=== PATIENT | male | born 1940 | race Caucasian/White ===

== ENCOUNTER 2019-08-20 08:54 | Observation (INO) | payer OTHER ==
--- NOTE | 2019-08-20 09:56 | RAD REPORT ---
EXAM DESCRIPTION: RAD - Chest Single View - 08/20/2019 9:34 am CLINICAL HISTORY: Shortness of breath COMPARISON: None. TECHNIQUE: AP portable chest image was obtained 0932 hours . FINDINGS: Lung volumes are low. Exam is further limited by portable technique and large body habitus . No focal lung parenchymal process suspected. Sternotomy wires are in place. Heart and vasculature are normal. No measurable pleural effusion and no pneumothorax. No acute bony abnormality seen. No acute aortic findings suspected. IMPRESSION: No acute cardiopulmonary process.
--- NOTE | 2019-08-20 10:01 | RAD REPORT ---
EXAM DESCRIPTION: CT - CTHCSPWOC - 08/20/2019 9:39 am CLINICAL HISTORY: Weakness, dizziness, shortness of breath, syncope COMPARISON: None. TECHNIQUE: Axial 5 mm thick images of the head were obtained. Axial 2 mm thick images of the cervic al spine were obtained with sagittal and coronal reconstruction images generated and reviewed. All CT scans are performed using dose optimization technique as appropriate and may include automated exposure control or mA/KV adjustment according to patient size. FINDINGS: No intracranial hemorrhage, mass, edema or acute intracranial finding. No suspicion for ac akua infarction. Atrophy and chronic ischemic changes are present mild to moderate in degree. Ventricl es are in proportion to volume loss. Mastoid air cells and paranasal sinuses are clear. No globe or o rbit abnormality seen. Asymmetry is created noted to. Cervical body height and alignment are normal. C5-6, C6-7 C7-T1 disc space narrowing present. Mild jaime ny foraminal encroachment at C5-6 with more advanced C6-7 bony foraminal encroachment. No fracture or acute bony abnormality. Central canal detail is inherently limited. No paraspinal mass or hematoma. IMPRESSION: Mild to moderate severity atrophy and chronic ischemic changes are present. No acute int racranial finding. Cervical spine degenerative changes are present including prominent C6-7 bilateral bony foraminal merlyn nosis. No acute finding.
[2019-08-20 10:56] LABS: Absolute Lymphocytes (CBC) 0.8 K/uL (0.7-4.9); Basophils % 0.4 % (0-1.3); Lymphocytes % 6.6 % (15.3-44.8); MPV 10.2 fL (7.6-11.3); Protime INR 1.04
[2019-08-20 11:07] LABS: BUN Blood Urea Nitrogen 13 mg/dL (7-18); Bicarbonate 28 mmol/L (21-32); Glucose Level 114 mg/dL (74-106); NT PRO-BNP 806 pg/mL (<450); Potassium 3.8 mmol/L (3.5-5.1); Sodium Level 132 mmol/L (136-145); Troponin (Emerg Dept Use Only) < 0.02 ng/mL (0.0-0.045)
--- NOTE | 2019-08-20 11:52 | EDPHYS ---
Physician Documentation [facility] Name: Robert De La Paz Age: 79 yrs Sex: Male : 1940 Arrival Date: 08/20/2019 Time: 08:56 Bed 6 Private MD: ED Physician Rick Casas HPI: 08/20 09:19 This 79 yrs old Male presents to ER via Ambulatory with complaints of rn Shortness Of Breath, Arm Pain, Numbness Of Arm. 09:19 The patient has shortness of breath at rest, with light activity. Onset: The rn symptoms/episode began/occurred 3 day(s) ago. Duration: The symptoms are intermittent. The patient's shortness of breath is aggravated by exertion, light activity. Severity of symptoms: At their worst the symptoms were mild in the emergency department the symptoms are unchanged. The patient has not experienced similar symptoms in the past. The patient has not recently seen a physician. Reports 3 days or so of sob, worse with exertion, + productive cough, no chest pain. Reports last night noticed left shoulder pain with movement and numbness of left arm. No trauma. No fever. NO abd pain. + diarrhea. . Historical: - Allergies: 09:20 No Known Allergies; aa5 - Home Meds: 09:20 Toprol XL Oral [Active]; Unknown diuretic [Active]; Simvastatin Oral [Active]; aa5 - PMHx: 09:20 Hypertension; "Heart problems"; aa5 09:20 Myocardial infarction; aa5 - PSHx: 09:20 Heart Surgery; aa5 - Immunization history:: Flu vaccine is not up to date. - Family history:: not pertinent. - Ebola Screening: : No symptoms or risks identified at this time. - Social history:: Smoking status: Patient/guardian denies using tobacco. - Hospitalizations: : No recent hospitalization is reported. ROS: 09:19 Constitutional: Negative for fever, chills, and weight loss, Eyes: Negative for injury, rn pain, redness, and discharge, Neck: Negative for injury, pain, and swelling, Cardiovascular: Negative for chest pain, palpitations, and edema, Respiratory: Negative for wheezing, and pleuritic chest pain, Abdomen/GI: Negative for abdominal pain, nausea, vomiting, and constipation, MS/Extremity: Negative for injury and deformity, Skin: Negative for injury, rash, and discoloration, Neuro: Negative for headache, weakness, numbness, tingling, and seizure. Exam: 09:19 Constitutional: This is a well developed, well nourished patient who is awake, alert, rn and in no acute distress. Ambulatory to room without difficulty or distress Head/Face: Normocephalic, atraumatic. Eyes: Pupils equal round and reactive to light, extra-ocular motions intact. Lids and lashes normal. Conjunctiva and sclera are non-icteric and not injected. Cornea within normal limits. Periorbital areas with no swelling, redness, or edema. Cardiovascular: Regular rate and rhythm. No pulse deficits. Respiratory: Lungs have equal breath sounds bilaterally, clear to auscultation. No increased work of breathing, no retractions or nasal flaring. Abdomen/GI: soft, non-tender MS/ Extremity: Pulses equal, no cyanosis. Neurovascular intact. Painful ROM left shoulder. Equal circumference. Neuro: Awake and alert, GCS 15, oriented to person, place, time, and situation. Cranial nerves II-XII grossly intact. Motor strength 5/5 in all extremities. Sensory grossly intact. Cerebellar exam normal. Normal gait. 09:47 ECG was reviewed by the Attending Physician. rn Vital Signs: 09:15 BP 148 / 87; Pulse 85; Resp 16; Temp 97.8; Pulse Ox 99% on R/A; Pain 4/10; hb 10:00 BP 136 / 86; Pulse 74; Resp 22 S; Temp 99.4(O); Pulse Ox 97% on R/A; aa5 11:00 BP 140 / 74; Pulse 76; Resp 16 S; Pulse Ox 97% on R/A; aa5 12:00 BP 127 / 91; Pulse 75; Resp 18 S; Pulse Ox 97% on R/A; aa5 13:00 BP 126 / 74; Pulse 73; Resp 18 S; Pulse Ox 97% on R/A; aa5 14:30 BP 128 / 74; Pulse 84; Resp 18 S; Pulse Ox 97% on R/A; aa5 MDM: 09:08 Patient medically screened. rn 11:50 Differential diagnosis: CHF exacerbation, Myocardial Infarction Pneumothorax. Data rn reviewed: vital signs, nurses notes, lab test result(s), EKG, radiologic studies, plain films, and as a result, I will admit patient. Counseling: I had a detailed discussion with the patient and/or guardian regarding: the historical points, exam findings, and any diagnostic results supporting the discharge/admit diagnosis, lab results, radiology results, the need for further work-up and treatment in the hospital. Admission orders: after a detailed discussion of the patient's condition and case, the admit orders are written by me. ED course: Will admit patient given worsening chest pain and dyspnea on exertion, with diaphoresis last night. Elevated BNP, normal trop, frequent PVcs, has not seen cardiology since bypass 21 years ago. Could be CHF vs disease of bypass vessels. . 08/20 09:19 Order name: Blood Culture Adult (2) rn 08/20 09:19 Order name: BMP; Complete Time: 11:33 rn 08/20 09:19 Order name: CBC with Diff; Complete Time: 11:33 rn 08/20 09:19 Order name: NT PRO-BNP; Complete Time: 11:33 rn 08/20 09:19 Order name: PT-INR; Complete Time: 11:33 rn 08/20 09:19 Order name: Ptt, Activated; Complete Time: 11:33 rn 08/20 09:19 Order name: XRAY CXR (1 view); Complete Time: 10:10 rn 08/20 09:19 Order name: Troponin (emerg Dept Use Only); Complete Time: 11:33 rn 08/20 09:19 Order name: EKG; Complete Time: 09:20 rn 08/20 09:19 Order name: Procalcitonin; Complete Time: 11:33 rn 08/20 09:19 Order name: Flu; Complete Time: 10:55 rn 08/20 09:19 Order name: CT Head C Spine; Complete Time: 10:10 rn 08/20 12:34 Order name: Diet Heart Healthy; Complete Time: 12:35 aa5 08/20 09:19 Order name: Cardiac monitoring; Complete Time: 09:26 rn 08/20 09:19 Order name: EKG - Nurse/Tech; Complete Time: 09:26 rn 08/20 09:19 Order name: IV Saline Lock; Complete Time: 10:24 rn 08/20 09:19 Order name: Labs collected and sent; Complete Time: 10:24 rn 08/20 09:19 Order name: O2 Per Protocol; Complete Time: rn 08/20 09:19 Order name: O2 Sat Monitoring; Complete Time: rn EC:47 Rate is 83 beats/min. Rhythm is regular. QRS [place] is Normal. IL interval is normal. QRS rn interval is normal. QT interval is normal. No Q waves. T waves are Normal. No ST changes noted. Clinical impression: NSR w/ Non-specific ST/T Changes and PVCs. Interpreted by me. Reviewed by me. Administered Medications: 12:08 Drug: Aspirin Chewable Tablet 324 mg Route: PO; aa5 13:00 Follow up: Response: No adverse reaction aa5 Disposition: 08/20/19 11:51 Hospitalization ordered by Stephanie Blake for Observation. Preliminary diagnosis are Chest pain, unspecified, Dyspnea, unspecified. - Bed requested for Telemetry/MedSurg (observation). - Status is Observation. ae4 - Condition is Stable. - Problem is an ongoing problem. - Symptoms have improved. UTI on Admission? No Signatures: Dispatcher [employer] EDMS Rick Casas MD MD rn Calderon, Audri RN RN aa5 Aye Rob Carlos Mandel RN RN ae4 Corrections: (The following items were deleted from the chart) 14:12 11:51 Hospitalization Ordered by Stephanie Blake MD for Observation. Preliminary diagnosis gm is Chest pain, unspecified; Dyspnea, unspecified. Bed requested for Telemetry/MedSurg (observation). Status is Observation. Condition is Stable. Problem is an ongoing problem. Symptoms have improved. UTI on Admission? No. rn 16:02 14:12 08/20/2019 11:51 Hospitalization Ordered by Stephanie Blake MD for Observation. ae4 Preliminary diagnosis is Chest pain, unspecified; Dyspnea, unspecified. Bed requested for Telemetry/MedSurg (observation). Status is Observation. Condition is Stable. Problem is an ongoing problem. Symptoms have improved. UTI on Admission? No. gm
--- NOTE | 2019-08-20 11:52 | ER ---
[facility] Name: Robert De La Paz Age: 79 yrs Sex: Male : 1940 Arrival Date: 08/20/2019 Time: 08:56 Bed 6 Private MD: Diagnosis: Chest pain, unspecified;Dyspnea, unspecified Presentation: 08/20 09:13 Presenting complaint: SOB, dizziness and malaise x 1 week, left arm numbness and hb tingling yesterday, left arm numbness and left shoulder pain upon waking today. VAN NEGATIVE. Transition of care: patient was not received from another setting of care. Onset of symptoms is unknown. Risk Assessment: Do you want to hurt yourself or someone else? Patient reports no desire to harm self or others. Care prior to arrival: None. 09:13 Method Of Arrival: Ambulatory hb 09:13 Acuity: DANIELLA 3 hb 09:20 Initial Sepsis Screen: Does the patient meet any 2 criteria? No. Patient's initial aa5 sepsis screen is negative. Does the patient have a suspected source of infection? No. Patient's initial sepsis screen is negative. Historical: - Allergies: 09:20 No Known Allergies; aa5 - Home Meds: 09:20 Toprol XL Oral [Active]; Unknown diuretic [Active]; Simvastatin Oral [Active]; aa5 - PMHx: 09:20 Hypertension; "Heart problems"; aa5 09:20 Myocardial infarction; aa5 - PSHx: 09:20 Heart Surgery; aa5 - Immunization history:: Flu vaccine is not up to date. - Family history:: not pertinent. - Ebola Screening: : No symptoms or risks identified at this time. - Social history:: Smoking status: Patient/guardian denies using tobacco. - Hospitalizations: : No recent hospitalization is reported. Screenin:20 Abuse screen: Denies threats or abuse. Nutritional screening: No deficits noted. aa5 Tuberculosis screening: No symptoms or risk factors identified. Fall Risk None identified. Assessment: 09:20 General: Appears comfortable, Behavior is calm, cooperative. Pain: Complains of pain in aa5 left shoulder and left arm Pain does not radiate. Pain currently is 4 out of 10 on a pain scale. Quality of pain is described as sharp, Is intermittent, Aggravated by any movement to left arm. Neuro: Level of Consciousness is awake, alert, obeys commands, Oriented to person, place, time, situation, Motel Operator are equal bilaterally Moves all extremities. Speech is normal, Facial symmetry appears normal, Pupils are PERRLA, Tingling in left arm. Cardiovascular: Heart tones S1 S2 present Rhythm is sinus rhythm with unifocal PVCs. Respiratory: Reports shortness of breath cough that is productive, Airway is patent Respiratory effort is even, unlabored, Respiratory pattern is regular, symmetrical, Breath sounds are clear bilaterally. GI: Abdomen is obese, Bowel sounds present X 4 quads. Abd is non tender X 4 quads. : No signs and/or symptoms were reported regarding the genitourinary system. EENT: No signs and/or symptoms were reported regarding the EENT system. Derm: Skin is pink, warm \\T\\ dry. Musculoskeletal: Range of motion: intact in all extremities. 09:26 Reassessment: X-ray at bedside . aa5 09:50 Reassessment: Patient is alert, oriented x 3, equal unlabored respirations, skin aa5 warm/dry/pink. Pt back from CT. . 09:50 Reassessment: Pt reports he has not seen a doctor since myocardial infarction aa5 approximately 21 years ago. . 10:00 Reassessment: Pt notified of wait time for lab results. . aa5 11:00 Reassessment: Patient is alert, oriented x 3, equal unlabored respirations, skin aa5 warm/dry/pink. 12:08 Reassessment: Patient is alert, oriented x 3, equal unlabored respirations, skin aa5 warm/dry/pink. Pt's family at bedside. . 13:30 Reassessment: Patient is alert, oriented x 3, equal unlabored respirations, skin aa5 warm/dry/pink. Pt sitting up in bed eating lunch, pt tolerating well. . 13:30 Reassessment: Patient denies pain at this time. aa5 14:30 Reassessment: Patient is alert, oriented x 3, equal unlabored respirations, skin aa5 warm/dry/pink. Pt sitting up in bed watching TV. Pt notified of wait time for transfer to admitting floor. . 14:30 Reassessment: Patient denies pain at this time. aa5 15:48 Reassessment: Report given to ELENI Savage. ae4 Vital Signs: 09:15 BP 148 / 87; Pulse 85; Resp 16; Temp 97.8; Pulse Ox 99% on R/A; Pain 4/10; hb 10:00 BP 136 / 86; Pulse 74; Resp 22 S; Temp 99.4(O); Pulse Ox 97% on R/A; aa5 11:00 BP 140 / 74; Pulse 76; Resp 16 S; Pulse Ox 97% on R/A; aa5 12:00 BP 127 / 91; Pulse 75; Resp 18 S; Pulse Ox 97% on R/A; aa5 13:00 BP 126 / 74; Pulse 73; Resp 18 S; Pulse Ox 97% on R/A; aa5 14:30 BP 128 / 74; Pulse 84; Resp 18 S; Pulse Ox 97% on R/A; aa5 ED Course: 08:56 Patient arrived in ED. as 09:08 Rick Casas MD is Attending Physician. rn 09:10 Aliya Dash RN is Primary Nurse. aa5 09:15 Triage completed. hb 09:15 Arm band placed on. hb 09:20 Patient has correct armband on for positive identification. Placed in gown. Bed in low aa5 position. Call light in reach. Side rails up X2. radiation monitor on. Pulse ox on. NIBP on. 09:32 XRAY CXR (1 view) In Process Unspecified. EDMS 09:39 CT Head C Spine In Process Unspecified. EDMS 09:39 CT completed. Patient tolerated procedure well. Patient moved back from CT. mw3 10:00 Initial lab(s) drawn, by me, sent to lab. Inserted saline lock: 20 gauge in right aa5 wrist, using aseptic technique. Blood collected. 10:00 First set of blood cultures drawn by me. aa5 10:00 No provider procedures requiring assistance completed. aa5 10:16 Second set of blood cultures drawn by me. aa5 11:51 Stephanie Blake MD is Hospitalizing Provider. rn 16:02 Patient admitted, IV remains in place. ae4 Administered Medications: 12:08 Drug: Aspirin Chewable Tablet 324 mg Route: PO; aa5 13:00 Follow up: Response: No adverse reaction aa5 Outcome: 11:51 Decision to Hospitalize by Provider. rn 16:01 Admitted to Med/surg accompanied by tech, family with patient, via wheelchair, room ae4 428, with oxygen, with chart, Report called to ELENI Savage 16:01 Condition: stable 16:01 Instructed on the need for admit. 16:02 Patient left the ED. ae4 Signatures: Dispatcher [employer] Lita Guajardo Roman, MD MD rn Calderon, Audri, RN RN aa5 Oksana Greco RN RN hb Willis, Michelle mw3 Carlos Mandel RN RN ae4 Corrections: (The following items were deleted from the chart) : General: Appears comfortable, Behavior is calm, cooperative, aa5 aa5 :10 Pain: Complains of pain in left shoulder and left arm Pain does not radiate. Pain aa5 currently is 4 out of 10 on a pain scale. Quality of pain is described as sharp, Is intermittent, Aggravated by any movement to left arm aa5 :10 Neuro: Level of Consciousness is awake, alert, obeys commands, Oriented to aa5 person, place, time, situation, Motel Operator are equal bilaterally Moves all extremities. Speech is normal, Facial symmetry appears normal, Pupils are PERRLA, Tingling in left arm aa5 :10 Cardiovascular: Heart tones S1 S2 present Rhythm is sinus rhythm with unifocal aa5 PVCs aa5 :10 Respiratory: Reports shortness of breath cough that is productive, Airway is aa5 patent Respiratory effort is even, unlabored, Respiratory pattern is regular, symmetrical, Breath sounds are clear bilaterally. aa5 :10 GI: Abdomen is obese, Bowel sounds present X 4 quads. Abd is non tender X 4 quads aa5 aa5 :10 : No signs and/or symptoms were reported regarding the genitourinary system. aa5aa5 :10 EENT: No signs and/or symptoms were reported regarding the EENT system. aa5 aa5 :10 Derm: Skin is pink, warm \\T\\ dry. aa5 aa5 :10 Musculoskeletal: Range of motion: intact in all extremities, aa5 aa5
[2019-08-20] MEDS ORDERED: ASPIRIN 81 MG CHEWABLE TABLET ONE (12:04)
[2019-08-20 16:19] VITALS: BMI 38.1
[2019-08-20] MEDS ORDERED: NITROGLYCERIN 0.4 MG/TAB SL PRN (16:41)
[2019-08-20] MEDS ORDERED: MORPHINE 4 MG/ML SYR IV PRN (16:41)
[2019-08-20] MEDS ORDERED: INFLUENZA VACCINE (for 3y+) 0.5 ML DOSE IMVAC ONE (17:00)
--- NOTE | 2019-08-20 17:35 | P.HP ---
Certification for Inpatient Patient admitted to: Observation Practitioner: I am a practitioner with admitting privileges, knowledge of patient current condition, hospital course, and medical plan of care. Services: Services provided to patient in accordance with Admission requirements found in Title 42 Section 412.3 of the Code of Federal Regulations Patient History Date of Service: 08/20/19 History of Present Illness: This is a 79-year-old male with a past medical history of hypertension, myocardial infarction, triple bypass 20 years ago with no cardiac follow up since then who presents to the emergency room with complaints of chest pain and dyspnea. Per patient, he has been visiting his daughter from [place] and he started this morning, suddenly with left arm and shoulder pain along with numbness. Initially, left arm was completely known. He also endorsed chest pain along with shortness of breath, nausea and excessive sweating with the symptoms. He denied any dizziness, headache, vision changes, speech changes, lightheadedness, other GI or complaints. With his prior cardiac history, patient and daughter got scared and therefore came to the emergency room. In the ER, blood pressure was 148/87, heart rate of 85, afebrile at 97.8 and satting 99% on room air. Labs were unremarkable except for BNP which is elevated to 806. Troponin was negative x1. EKG was with frequent PVCs. Chest x-ray without any acute abnormalities. Head/C-spine CT without any acute abnormalities but noted chronic C6-7 bilateral foraminal stenosis. In the ER, he received aspirin. At the time of my exam, patient is alert oriented x3, in no acute distress and hemodynamically stable. He continued to endorse left hand numbness been much improved. He denied any chest pain at the time of my exam Allergies No Known Allergies Allergy (Unverified 08/20/19 16:18) Home medications list reviewed: Yes Home Medications: Lisinopril [Prinivil*] 20 mg PO BID 08/20/19 Meloxicam [Mobic] 15 mg PO DAILY 08/20/19 Metoprolol Succinate [Toprol Xl*] 50 mg PO BID 08/20/19 Simvastatin 20 mg PO BEDTIME 08/20/19 Tamsulosin [Flomax*] 0.4 mg PO DAILY 6PM 08/20/19 hydroCHLOROthiazide [Hydrochlorothiazide*] 25 mg PO DAILY 08/20/19 - Past Medical/Surgical History Has patient received pneumonia vaccine in the past: Yes Diabetic: No -: [place] -: HTN -: Triple Bypass - Social History Smoking Status: Never smoker Alcohol use: No CD- Drugs: No Caffeine use: Yes Place of Residence: Home Review of Systems 10-point ROS is otherwise unremarkable Physical Examination - Vital Signs Temperature: 99.4 F Blood Pressure: 136/86 Pulse: 74 Respirations: 22 - Physical Exam General: Alert, In no apparent distress, Oriented x3 HEENT: Atraumatic, PERRLA, Mucous membr. moist/pink, EOMI, Sclerae nonicteric Neck: Supple, 2+ carotid pulse no bruit, No LAD, Without JVD or thyroid abnormality Respiratory: Clear to auscultation bilaterally, Normal air movement Cardiovascular: Regular rate/rhythm, Normal S1 S2 Gastrointestinal: Normal bowel sounds, No tenderness Musculoskeletal: No tenderness Integumentary: No rashes Neurological: Normal speech, Normal strength at 5/5 x4 extr, Normal tone, Normal affect, Abnormal sensation Lymphatics: No axilla or inguinal lymphadenopathy - Studies Laboratory Data (last 24 hrs) 08/20/19 10:05: PT 12.3, INR 1.04, APTT 25.9 08/20/19 10:05: WBC 12.7 H, Hgb 14.1, Hct 42.0, Plt Count 196 08/20/19 10:05: Sodium 132 L, Potassium 3.8, BUN 13, Creatinine 1.10, Glucose 114 H Microbiology Data (last 24 hrs): 08/20/19 10:10 Nasopharnyx Influenza Type A Antigen Screen - Final 08/20/19 10:10 Nasopharnyx Influenza Type B Antigen Screen - Final Assessment and Plan - Problems (Diagnosis) (1) Chest pain Current Visit: Yes Status: Acute Qualifiers: Chest pain type: unspecified Qualified Code(s): R07.9 - Chest pain, unspecified (2) History of myocardial infarction Current Visit: Yes Status: Acute (3) History of heart bypass surgery Current Visit: Yes Status: Acute (4) Hypertension Current Visit: No Status: Chronic Qualifiers: Hypertension type: essential hypertension Qualified Code(s): I10 - Essential (primary) hypertension (5) Foraminal stenosis of cervical region Current Visit: Yes Status: Chronic (6) Morbid obesity Current Visit: Yes Status: Acute - Plan Differential diagnosis: ACS, symptoms could also be due to the bilateral foraminal stenosis in the cervical region -Due to patient's heart history, we will go ahead and admit patient for rule- out. -troponin negative x1, trend troponin -cardiology consult, awaiting recommendations -echo ordered, pending -Chest pain guidelines: Beta-giovanna, aspirin, Plavix, statin, COLE-inhibitor -he will likely need outpatient follow up for his chronic foraminal stenosis in the cervical region. He may benefit from following up with neuro surgery and maybe even some physical therapy -will restart home medications as tolerated DVT prophylaxis: Aspirin/Plavix GI prophylaxis: None Diet: Heart healthy Disposition: Admit to floor with tele. Pending symptomatic improvement. Pending cardiology recommendations. Discharge Plan: Home Plan to discharge in: 48 Hours - Advance Directives Does patient have a Living Will: No Does patient have a Durable POA for Healthcare: No Time Spent Managing Pts Care (In Minutes): 55
[2019-08-20] MEDS: TAMSULOSIN 0.4 MG SR CAP PO SCH (18:00)
[2019-08-20] MEDS ORDERED: METOPROLOL TAR 25 MG TAB PO SCH (21:00)
[2019-08-20] MEDS: METOPROLOL XL 50 MG TAB PO SCH (21:45)
[2019-08-20] MEDS: ATORVASTATIN 40 MG TAB PO SCH (21:46)
[2019-08-20] MEDS: LISINOPRIL 20 MG TAB PO SCH (21:46)
[2019-08-21 06:50] LABS: Potassium 4.1 mmol/L (3.5-5.1)
[2019-08-21 07:08] LABS: Absolute Lymphocytes (CBC) 1.6 K/uL (0.7-4.9); Basophils % 0.7 % (0-1.3); Hematocrit 38.9 % (39.6-49.0); Lymphocytes % 17.7 % (15.3-44.8)
[2019-08-21] MEDS ORDERED: REGADENOSON 0.4 MG/5 ML SYR IV ONE (08:00)
[2019-08-21] MEDS ORDERED: LISINOPRIL 10 MG TAB PO SCH (09:00)
--- NOTE | 2019-08-21 09:50 | EKG ---
Test Date: 2019-08-20 Test Time: 09:23:40 [employer] Tele[employer] Specialist: MEASUREMENT RESULTS: Intervals: Rate: 83 UT: 158 QRSD: 92 QT: 388 QTc: 455 Ophelia: P: 46 UT: 158 QRS: 48 T: 64 INTERPRETIVE STATEMENTS: Sinus rhythm with frequent premature ventricular complexes Septal infarct, age undetermined Abnormal ECG No previous ECG available for comparison Electronically Signed On 08-21-19 09:49:20 CDT by Ciro Andrea
--- NOTE | 2019-08-21 10:01 | CON ---
Identification: 79-year-old man. Chief Complaint: Chest pain and left arm pain. History Of Present Illness: Mr. De La Paz developed inability to move his arm, also stiffness and pain in the arm. It resolved after an hour or so. It was largely gone by the time he reached the emergen cy room. He has a history of bypass surgery 21 years ago. He does not see a electrophysiology nurse practitioner. He has n ever had stroke before his bypass. There was no IA. Medications: His outpatient medications have been simvastatin 20, hydrochlorothiazide, meloxicam, me toprolol, lisinopril, and tamsulosin. Allergies: HAS NO ALLERGIES. Social History: He does not use tobacco now. Physical Examination: Constitutional: 5 feet 10 inches, 266 pounds. General: Obese, alert, oriented, pleasant, not in distress. Neck: Carotids, no bruit. Lungs: Clear. Cardiac: S4 gallop, otherwise within normal limits. Abdomen: Soft. Extremities: Palpable but diminished pulses. Trace edema. Impression: The patient probably had a transient ischemic attack. He may also have angina. I would recommend we do a carotid Doppler, have a neuro consult, do an echo and a nuclear stress test and se e what kind of situation the patient is in. I suspect he had a transient ischemic attack and he also has an rodriguez. MADELAINE Voice ID: [id number] Report ID: [id number]
--- NOTE | 2019-08-21 10:17 | RAD REPORT ---
EXAM DESCRIPTION: - CP - 08/21/2019 9:09 am CLINICAL HISTORY: TIA, left arm weakness COMPARISON: None. TECHNIQUE: Real-time sonographic evaluation of both carotid systems was performed. Blackburn scale and Do ppler interrogation were performed with waveform tracing bilaterally. FINDINGS: Normal high resistance waveforms are noted in both external carotid arteries. The common c arotid arteries and internal carotid arteries show normal low resistance waveforms. Calcified and noncalcified plaquing changes are present in the bulb and proximal ICA regions. On visu al inspection no significant degree of luminal narrowing identifiable. No dissection findings. Peak s ystolic and end-diastolic velocity values fall in a non hemodynamically significant range. ICA/CCA ra tios also in a normal range. Antegrade flow seen in both vertebral arteries. Velocity values and ratios were recorded and are retained in the patient's imaging records. IMPRESSION: Bilateral calcified and noncalcified plaquing changes are present. Currently findings do not result in hemodynamically significant stenosis.
--- NOTE | 2019-08-21 11:05 | ECHO ---
HEIGHT: 5 ft 10 in WEIGHT: 266 lb 0 oz DATE OF STUDY: 08/21/[address]: Stephanie Blake MD 2-DIMENSIONAL: YES M.MODE: YES DOPPLER: YES COLOR FLOW: YES TDS: YES PORTABLE: NO DEFINITY: NO BUBBLE STUDY: NO DIAGNOSIS: CHEST PAIN, SHORTNESS OF BREATH CARDIAC HISTORY: CATHERIZATION: YES SURGERY: YES PROSTHETIC VALVE: NO PACEMAKER: NO MEASUREMENTS (cm) DIASTOLIC (NORMALS) SYSTOLIC (NORMALS) IVSd 1.0 (0.6-1.2) LA Diam 4.2 (1.9-4.0) LVEF 55-59% LVIDd 5.0 (3.5-5.7) LVIDs 4.4 (2.0-3.5) %FS 12% LVPWd 1.0 (0.6-1.2) Ao Diam 3.3 (2.0-3.7) 2 DIMENSIONAL ASSESSMENT: RIGHT ATRIUM: NORMAL LEFT ATRIUM: DILATED RIGHT VENTRICLE: NORMAL LEFT VENTRICLE: NORMAL TRICUSPID VALVE: NORMAL MITRAL VALVE: NORMAL PULMONIC VALVE: NORMAL AORTIC VALVE: MILD SCLEROSIS PERICARDIAL EFFUSION: NONE AORTIC ROOT: NORMAL LEFT VENTRICULAR WALL MOTION: NORMAL. DOPPLER/COLOR FLOW: MILD MITRAL REGURGITATION. NO AORTIC STENOSIS OR AORTIC REGURGITATION. COMMENTS: NORMAL LEFT VENTRICULAR EJECTION FRACTION. DILATED LEFT ATRIUM. 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 MILD MITRAL REGURGITATION. TECHNICALLY DIFFICULT STUDY. TECHNOLOGIST: LAZARUS GONZALEZ
--- NOTE | 2019-08-21 11:14 | TREADPHA ---
DX: CHEST PAIN Date of Study: 08/21/19 Ht: 5 10 Wt: 266 lb 0 oz Consulting Physician: LYNN MEDICATIONS: ASPIRIN, LIPITOR, PLAVIX, PRINIVIL, TOPROL XL, NITROSTAT. HISTORY: HYPERTENSION, HIGH CHOLESTEROL, TRIPLE BYPASS. PHYSICIAL EXAMINATION: RESTING B.P.: 141/102 RESTING H.R.: 76 RESTING EKG: SINUS RHYTHM WITH OCCASIONAL PREMATURE VENTRICULAR COMPLEXES, NON SPECIFIC T WAVE ABNORMALITIES. PROTOCOL: LEXISCAN EXERCISE TIME: 3:30 B.P. AT PEAK STRESS: 126/101 IMPRESSION: LEXISCAN STRESS TEST PERFORMED. CARDIOLITE INJECTED PER PROTOCOL. NO SUPRA VENTRICULAR TACHYCARDAI, NO VENTRICULAR TACHYCARDIA, PREMATURE VENTRICULAR COMPLEXES NOTED. PATIENT DENIED CHEST PAIN. SEE NUCLEAR MEDICINE REPORT. NON DIAGNOSTIC EKG WITH LEXISCAN STRESS.
--- NOTE | 2019-08-21 11:24 | RAD REPORT ---
EXAM DESCRIPTION: NM - Rest Stress Cardiac Imaging - 08/21/2019 10:58 am CLINICAL HISTORY: CP Chest pain. COMPARISON: No comparisons TECHNIQUE: The patient was administered approximately 10mCi of Tc 99m Sestamibi prior to resting SPE CT imaging of the heart. The patient was then administered approximately 30 mCi of Tc 99m Sestamibi f ollowing exercise or pharmacologic stress. Multiplanar SPECT images were reviewed. FINDINGS: No stress induced ischemic defect is seen to suggest stress induced ischemia. No fixed def ect is seen to suggest hibernating myocardium or scarred myocardium. The end diastolic volume is 162 ml, the end systolic volume is 100 ml, and the ejection fraction is 3 8 %. IMPRESSION: No stress induced ischemia.
[2019-08-21] MEDS: ASPIRIN EC 81 MG TAB PO SCH (11:26)
[2019-08-21] MEDS: CLOPIDOGREL 75 MG TABLET PO SCH (11:26)
[2019-08-21] MEDS: METOPROLOL XL 50 MG TAB PO SCH ×2 (11:26→21:10)
[2019-08-21] MEDS: LISINOPRIL 20 MG TAB PO SCH ×2 (11:27→21:10)
[2019-08-21] MEDS: hydroCHLOROthiazide 25 MG TAB PO SCH (11:27)
--- NOTE | 2019-08-21 11:36 | P.PN ---
Subjective Date of Service: 08/21/19 Subjective: Improving Patient seen and examined at bedside. Daughter and at bedside. Chart reviewed and case discussed with nursing staff. Daughter states that patient seems to be a little disoriented Patient reports improved left arm heaviness. Complains of left shoulder pain Review of Systems 10-point ROS is otherwise unremarkable Physical Examination - Vital Signs Temperature: 97.8 F Blood Pressure: 142/85 Pulse: 80 Respirations: 20 Pulse Ox (%): 97 - Physical Exam General: Alert, In no apparent distress HEENT: Atraumatic, PERRLA, EOMI Neck: Supple, JVD not distended Respiratory: Clear to auscultation bilaterally, Normal air movement Cardiovascular: Regular rate/rhythm, Normal S1 S2 Gastrointestinal: Normal bowel sounds, No tenderness Musculoskeletal: No tenderness Integumentary: No rashes Neurological: Normal speech, Normal tone, Normal affect Lymphatics: No axilla or inguinal lymphadenopathy - Studies Microbiology Data (last 24 hrs): 08/20/19 10:10 Nasopharnyx Influenza Type A Antigen Screen - Final 08/20/19 10:10 Nasopharnyx Influenza Type B Antigen Screen - Final Assessment And Plan - Current Problems (Diagnosis) (1) Chest pain Current Visit: Yes Status: Acute Qualifiers: Chest pain type: unspecified Qualified Code(s): R07.9 - Chest pain, unspecified (2) History of myocardial infarction Current Visit: Yes Status: Acute (3) History of heart bypass surgery Current Visit: Yes Status: Acute (4) Hypertension Current Visit: No Status: Chronic Qualifiers: Hypertension type: essential hypertension Qualified Code(s): I10 - Essential (primary) hypertension (5) Foraminal stenosis of cervical region Current Visit: Yes Status: Chronic (6) Morbid obesity Current Visit: Yes Status: Acute - Plan Differential diagnosis: ACS, symptoms could also be due to the bilateral foraminal stenosis in the cervical region, TIA -Due to patient's heart history, we will go ahead and admit patient for rule- out. -troponin negative x3 -cardiology consult, recommendations appreciated -stress test negative -echo with dilated heart, ejection fraction 55-59% -continue Chest pain guidelines: Beta-giovanna, aspirin, Plavix, statin, COLE- inhibitor -he will likely need outpatient follow up for his chronic foraminal stenosis in the cervical region. He may benefit from following up with neuro surgery and maybe even some physical therapy -carotid ultrasound of the neck, with no hemodynamically significant stenosis noted. -x-ray of the shoulder, with no acute fractures or abnormality. Shoulder pain is likely secondary to his arthritis. Will continue home pain medications for now. He will need to have outpatient follow up with his primary doctor. He may benefit from some physical therapy. It was recommended that he speak to his primary care doctor in regards to this as patient is from out of town. -MRI of the brain done, negative for any acute abnormality/CVA. Nonfocal neurological exam -will continue home medications as tolerated DVT prophylaxis: Aspirin/Plavix GI prophylaxis: None Diet: Heart healthy Disposition: Pending symptomatic improvement. Anticipate discharge home in the morning Discharge Plan: Home Plan to discharge in: 24 Hours
--- NOTE | 2019-08-21 12:54 | RAD REPORT ---
EXAM DESCRIPTION: MRI - Brain W/Wo Cont - 08/21/2019 12:41 pm CLINICAL HISTORY: disorientation, Left arm numbness Headache, drowsiness COMPARISON: Head C Spine Mpr Wo Con dated 08/20/2019 TECHNIQUE: Multi-sequence, multiplanar MR imaging of the brain was performed with contrast. FINDINGS: No intracranial hemorrhage, hydrocephalus, or extra-axial fluid collection.Moderate conflu ent T2/FLAIR hyperintensity in the periventricular and deep white matter is present compatible with c hronic microvascular ischemic changes. No edema or shift of midline structures. No intracranial mass. DWI is negative for acute CVA. The midline structures are normally formed. Mastoid air cells and paranasal sinuses are clear. Post-contrast images show no abnormal enhancement to suggest tumor or infection. IMPRESSION: Negative for acute CVA or other acute intracranial finding. No pathologic post-contrast enhancement suspected.
--- NOTE | 2019-08-21 15:03 | RAD REPORT ---
EXAM DESCRIPTION: RAD - Shoulder Left 2 View - 08/21/2019 2:27 pm CLINICAL HISTORY: Left shoulder pain COMPARISON: None. TECHNIQUE: Internal and external rotation views of the left shoulder were obtained. FINDINGS: There is no fracture or dislocation. Mild AC joint degenerative changes are present. There is narrowing of the lateral aspect of the acromial humeral joint space. There degenerative changes s een in the superolateral humeral head. No acute or suspicious findings. No abnormal soft tissue calci fications. IMPRESSION: Left shoulder joint degenerative changes are present with no acute findings seen.
[2019-08-21] MEDS: TAMSULOSIN 0.4 MG SR CAP PO SCH (17:30)
[2019-08-21] MEDS: ATORVASTATIN 40 MG TAB PO SCH (21:10)
[2019-08-21] MEDS: MELOXICAM 7.5 MG TAB PO SCH (21:10)
[2019-08-22] MEDS: ASPIRIN EC 81 MG TAB PO SCH (08:31)
[2019-08-22] MEDS: LISINOPRIL 20 MG TAB PO SCH (08:31)
[2019-08-22] MEDS: METOPROLOL XL 50 MG TAB PO SCH (08:31)
[2019-08-22] MEDS: hydroCHLOROthiazide 25 MG TAB PO SCH (08:31)
[2019-08-22] MEDS: MELOXICAM 7.5 MG TAB PO SCH (08:32)
[2019-08-22] MEDS: CLOPIDOGREL 75 MG TABLET PO SCH (08:32)
[2019-08-22 08:33] VITALS: BP 128/79
[2019-08-22 08:49] VITALS: TEMP 99
[2019-08-22 09:07] VITALS: O2SAT 94
--- NOTE | 2019-08-22 14:48 | P.SSS ---
Patient History Date of Service: 08/22/19 Primary Care Provider: In [place] Reason for admission: Chest pain, left arm numbness History of Present Illness: This is a 79-year-old male with a past medical history of hypertension, myocardial infarction, triple bypass 20 years ago with no cardiac follow up since then who presents to the emergency room with complaints of chest pain and dyspnea. Per patient, he has been visiting his daughter from [place] and he started this morning, suddenly with left arm and shoulder pain along with numbness. Initially, left arm was completely known. He also endorsed chest pain along with shortness of breath, nausea and excessive sweating with the symptoms. He denied any dizziness, headache, vision changes, speech changes, lightheadedness, other GI or complaints. With his prior cardiac history, patient and daughter got scared and therefore came to the emergency room. In the ER, blood pressure was 148/87, heart rate of 85, afebrile at 97.8 and satting 99% on room air. Labs were unremarkable except for BNP which is elevated to 806. Troponin was negative x1. EKG was with frequent PVCs. Chest x-ray without any acute abnormalities. Head/C-spine CT without any acute abnormalities but noted chronic C6-7 bilateral foraminal stenosis. In the ER, he received aspirin. At the time of my exam, patient is alert oriented x3, in no acute distress and hemodynamically stable. He continued to endorse left hand numbness been much improved. He denied any chest pain at the time of my exam Allergies No Known Allergies Allergy (Unverified 08/20/19 16:18) Home medications list reviewed: Yes Home Medications: Lisinopril [Prinivil*] 20 mg PO BID 08/20/19 Meloxicam [Mobic] 15 mg PO DAILY 08/20/19 Metoprolol Succinate [Toprol Xl*] 50 mg PO BID 08/20/19 Simvastatin 20 mg PO BEDTIME 08/20/19 Tamsulosin [Flomax*] 0.4 mg PO DAILY 6PM 08/20/19 hydroCHLOROthiazide [Hydrochlorothiazide*] 25 mg PO DAILY 08/20/19 - Past Medical/Surgical History Has patient received pneumonia vaccine in the past: Yes Diabetic: No -: [place] -: HTN -: Triple Bypass - Social History Smoking Status: Never smoker Alcohol use: No CD- Drugs: No Caffeine use: Yes Place of Residence: Home Review of Systems 10-point ROS is otherwise unremarkable Physical Examination - Vital Signs Temperature: 99.0 F Blood Pressure: 128/79 Pulse: 86 Respirations: 18 Pulse Ox (%): 94 - Physical Exam General: Alert, In no apparent distress, Oriented x3 HEENT: Atraumatic, PERRLA, Mucous membr. moist/pink, EOMI, Sclerae nonicteric Neck: Supple, 2+ carotid pulse no bruit, No LAD, Without JVD or thyroid abnormality Respiratory: Clear to auscultation bilaterally, Normal air movement Cardiovascular: Regular rate/rhythm, Normal S1 S2 Gastrointestinal: Normal bowel sounds, No tenderness Musculoskeletal: No tenderness Integumentary: No rashes Neurological: Normal gait, Normal speech, Normal strength at 5/5 x4 extr, Normal tone, Normal affect Lymphatics: No axilla or inguinal lymphadenopathy - Diagnosis (Problem(s)) (1) Chest pain Status: Acute Qualifiers: Chest pain type: unspecified Qualified Code(s): R07.9 - Chest pain, unspecified (2) History of myocardial infarction Status: Acute (3) History of heart bypass surgery Status: Acute (4) Hypertension Status: Chronic Qualifiers: Hypertension type: essential hypertension Qualified Code(s): I10 - Essential (primary) hypertension (5) Foraminal stenosis of cervical region Status: Chronic (6) Morbid obesity Status: Acute Treatment Summary: Patient was admitted for above symptoms. Differential diagnosis included ACS, symptoms could also be due to the bilateral foraminal stenosis in the cervical region, TIA. Cardiology was consulted. ACS was ruled out with a negative troponin x3, negative stress test and echo with dilated heart ejection fraction of 55-59%. Carotid ultrasound of the neck was done, with no hemodynamically significant stenosis noted. X-ray of the shoulder with no acute fractures or abnormality. His shoulder pain was thought to be likely secondary to his arthritis. MRI of the brain was also done, it was negative for any acute abnormalities/CVA. He otherwise remained stable throughout the stay. He remained hemodynamically stable throughout the stay. The patient will benefit from following up with his primary care physician. He will also benefit from following up as an outpatient for his chronic foraminal stenosis in the cervical region with a neurosurgeon. He will also benefit from some physical therapy. He was also recommended to follow up with his surgical resident in his hometown as he has not seen a surgical resident over 10 years. His diagnoses/treatment plan was explained to him, all questions are answered verbalized understanding. He was then discharged home in a safe and stable manner once being cleared for discharge by cardiology. - Disposition Discharge Date: 08/22/19 Disposition: ROUTINE DISCHARGE Condition: GOOD Consultations: Cardiology Patient Discharge Instructions: Please follow up with your primary care physician as soon as you can. Follow up with a surgical resident and a neurosurgeon. Return to the ER for worsening symptoms. Diet: AHA Activity: Ad domonique Time Spent Managing Pts Care (In Minutes): 55
[2019-08-22] MEDS ORDERED: MELOXICAM 7.5 MG TAB PO SCH (20:49)
== END 2019-08-22 11:48 | disposition home or self-care (01) ==
LOC: ER 08:54 → ERHOLD 13:05 → 4TH 15:56
PROVIDERS: ADMIT Family Medicine; ATTEND Family Medicine
DX: R07.9 Chest pain, unspecified (principal); I25.2 Old myocardial infarction; I10 Essential (primary) hypertension; E66.01 Morbid (severe) obesity due to excess calories; Z68.38 Body mass index [BMI] 38.0-38.9, adult; M48.02 Spinal stenosis, cervical region; Z95.1 Presence of aortocoronary bypass graft; Z23 Encounter for immunization
CPT/HCPCS: 93005; 93017; 93306; 87040 ×2; 85025 ×2; 80048 ×2; 36415; 85610; 80061; 85730; 84484 ×3; 84145; 83880; 87804 ×2; 70450; 72125; 71045; 73030; 90471; 93880; 70553; 94760 ×5; 78452; 99285; A9577; Q2035; J2785; A9500; G0378 ×4